=== PATIENT | male | born 1985 | race American Indian/Alaskan Native ===

== ENCOUNTER 2019-05-03 13:12 | Emergency (ER) | payer MEDICARE ==
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
--- NOTE | 2019-05-03 16:07 | XRay Report ---
LUMBAR SPINE 3 VIEWS INDICATION: pain COMPARISON: None. FINDINGS: There is no fracture, subluxation, or other acute radiographic abnormality of the lumbar spine. Pedic les appear intact. Signer Name: Harshal Elmore MD Signed: 05/03/2019 4:02 PM Workstation Name: [id number]
[2019-05-03] MEDS ORDERED: TORADOL IM ONE (17:00)
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
[2019-05-03 18:30] VITALS: BP 106/70
== END 2019-05-03 18:28 | disposition home or self-care (01) ==
LOC: ED 13:12
DX: S39.012S Strain of muscle, fascia and tendon of lower back, sequela (principal); X58.XXXS Exposure to other specified factors, sequela
CPT/HCPCS: 72100; 96372; 99283; J1885